=== PATIENT | male | born 1965 | race Caucasian/White ===

== ENCOUNTER 2019-07-11 19:26 | Outpatient (CLI) | payer OTHER | END 2019-07-11 19:27 | disposition home or self-care (01) | LOC: COV 19:26 | PROVIDERS: ATTEND Family Medicine | DX: R50.9 Fever, unspecified (principal); M79.10 Myalgia, unspecified site; R53.83 Other fatigue; J02.9 Acute pharyngitis, unspecified | CPT/HCPCS: 81599 ==

== ENCOUNTER 2023-09-04 08:43 | Outpatient (CLI) | payer OTHER ==
[2023-09-04 08:54] LABS: BASOPHILS # (AUTO) 0.1 10^3/uL (0.0-0.1); BASOPHILS % (AUTO) 1.3 %; EOSINOPHILS # (AUTO) 0.2 10^3/uL (0.0-0.7); EOSINOPHILS % (AUTO) 3.5 %; HCT - HEMATOCRIT 44.2 % (42.0-52.0); HGB - HEMOGLOBIN 14.3 g/dL (14.0-18.0); LYMPHOCYTES # (AUTO) 1.7 10^3/uL (1.5-3.5); LYMPHOCYTES % (AUTO) 31.4 %; MEAN CORPUSCULAR HEMOGLOBIN 29.1 pg (27.0-31.0); MEAN CORPUSCULAR HGB CONC 32.4 g/dL (32.0-36.0); MEAN CORPUSCULAR VOLUME 89.8 fL (80.0-94.0); MEAN PLATELET VOLUME 9.7 fL (7.4-11.4); MONOCYTES # (AUTO) 0.6 10^3/uL (0.0-1.0); MONOCYTES % (AUTO) 11.1 %; NEUTROPHILS # (AUTO) 2.8 10^3/uL (1.5-6.6); NEUTROPHILS % (AUTO) 52.5 %; PLT - PLATELET COUNT 238 10^3/uL (130-450); RED BLOOD COUNT 4.92 10^6/uL (4.70-6.10); RED CELL DISTRIBUTION WIDTH 13.1 % (12.0-15.0); WHITE BLOOD COUNT 5.4 x10^3/uL (4.8-10.8)
[2023-09-04 09:16] LABS: ALBUMIN 4.4 g/dL (3.2-5.5); ALBUMIN/GLOBULIN RATIO 1.8 (1.0-2.2); ALKALINE PHOSPHATASE 97 IU/L (42-121); ALT ALANINE AMINOTRANSFERASE 32 IU/L (10-60); AST ASPARTATE AMINOTRANSFERASE 33 IU/L (10-42); BILIRUBIN,TOTAL 0.5 mg/dL (0.2-1.0); BUN - BLOOD UREA NITROGEN 18 mg/dL (6-20); CALCIUM 9.3 mg/dL (8.5-10.3); CARBON DIOXIDE - CO2 29 mmol/L (21-32); CHLORIDE 103 mmol/L (101-111); CHOL/HDL RATIO 2.4 (<5.0); CHOLESTEROL 107 mg/dL; GFR - MDRD 77 (>89); GLUCOSE 126 mg/dL (74-104); HDL CHOLESTEROL 44 mg/dL; LDL CHOLESTEROL,CALCULATED 51 mg/dL; LDL/HDL RATIO 1.2 (<3.6); POTASSIUM 4.1 mmol/L (3.5-4.5); SODIUM 136 mmol/L (135-145); TOTAL PROTEIN 6.8 g/dL (6.4-8.9); TRIGLYCERIDES 62 mg/dL (48-352); VLDL CHOLESTEROL 12 mg/dL
== END 2023-09-04 08:44 | disposition home or self-care (01) ==
LOC: LAB 08:43
PROVIDERS: ATTEND Nurse Practitioner Family
DX: Z00.00 Encounter for general adult medical examination without abnormal findings (principal); E78.5 Hyperlipidemia, unspecified
CPT/HCPCS: 36415; 80053; 80061; 83721; 85025

== ENCOUNTER 2023-11-12 11:08 | Outpatient (CLI) | payer OTHER ==
--- NOTE | 2023-11-12 11:40 | Sleep Patient Instructions ---
Sleep Center Visit Summary - Patient Visit Information Reason for Visit: Initial consult for evaluation of sleep disordered breathing and other sleep issues. - Patient Instructions Instructions Attached: Sleep Study, Sleep Study Home Monitor Additional Instructions: You will be completing a sleep study, either an in-lab polysomnography (PSG) or home sleep study (HST). You will follow-up in the sleep care office after the sleep study is completed to hear the results and talk about therapy, if needed. You will be called by our office staff to schedule this appointment, but you may contact us with any questions. - Clinic Information Contact: [facility] [address] [place] [id number] [email or web address] T: [phone]
--- NOTE | 2023-11-12 11:45 | SLEEP CARE CONSULTATION ---
Information from patient questionnaire entered by Sujit Colbert. I have reviewed and concur with the information entered by Sujit Colbert. This document represents the service I personally performed and the decisions made by me, Hanna Craven ARNP. History of Present Illness Service Date and Time: 11/12/2023 1108 Reason for Visit: New patient Chief Complaint: reports: Snoring, Observed pauses in breathing Date of Onset: DECADES Usual bedtime: 2300 Time it takes to fall asleep: 2MINS Snores at night: Yes Observed to quit breathing while asleep: Yes Sleeps alone due to snoring: No Number of times waking at night: 0-1 Reasons for waking at night: reports: Bathroom, Other (UNKNWON HEAT). denies: Choking, Gasping for air Toss, Turn, or Twitch while sleeping: Yes Recalls having dreams: No (rarely remember dreams) Usually gets out of bed at: 0700 Feels refreshed in the morning: Yes Morning headache: No Sleepy or fatigued during the day: No Ever fallen asleep while driving: No Takes day naps: No Prior sleep studies: No Additional HPI information: I had the pleasure of seeing MICHELLE PONCE today regarding the possibility of him having a sleep disorder. His current complaints are snoring and observed pauses in breathing. He says he knows that he has been snoring for a long time. His has told him in the past that he might have pauses in breathing when sleeping. He says he wakes up feeling refreshed. He does not have urge to nap during the day. - Parasomnia Symptoms Ever been unable to move upon waking from sleep: No Walks in sleep: No Talks in sleep: No Ever acted out dreams in sleep: No Ever felt weak in the knees when startled or emotional: No Bothered by creepy, crawly, restless sensations in legs: Yes (very rarely, has more leg cramps than restlessness) Problems with memory or concentration: Yes (last 2 years, memory) Subjective Initial Ward Sleepiness Scale score: 4 (11/10/23) Past Medical History Past Medical History: reports: Diabetes (PRE DIABETES), Asthma, GERD Social History The patient's occupation is a [employer]. Patient is and lives in [place]. Have you smoked in the past 12 months: No Alcohol use: Yes Alcohol amount and frequency: 4 SHOTS A WEEK Caffeine use: Yes Caffeine amount and frequency: 5 SODAS DAILY Family History Family history of sleep disordered breathing: Yes Family Hx Sleep Apnea: Father: Snoring Allergies and Home Medications Known drug allergies: Yes ( LISTED) Drug allergies reviewed: Yes Home medication list reviewed: Yes (as listed) Allergy and home medication list: Allergies cefaclor [From Ceclor] Allergy (Verified 11/12/23 11:10) Sulfa (Sulfonamide Antibiotics) Allergy (Verified 11/12/23 11:10) Home Medications Medication Instructions Recorded Confirmed Last Taken Type Albuterol See Rx Instructions [facility] 11/12/23 11/12/23 Unknown History Atorvastatin [Lipitor] See Rx Instructions [facility] 11/12/23 11/12/23 Unknown History Bismuth Subsalicylate See Rx Instructions [facility] 11/12/23 11/12/23 Unknown History [Pepto-Bismol] Cetirizine [ZyrTEC] See Rx Instructions [facility] 11/12/23 11/12/23 Unknown History Fluticasone [Flonase] See Rx Instructions [facility] 11/12/23 11/12/23 Unknown History Fluticasone/Salmeterol 100/50 See Rx Instructions [facility] 11/12/23 11/12/23 Unknown History [Advair 100 Mcg/50 Mcg] Ibuprofen See Rx Instructions [facility] 11/12/23 11/12/23 Unknown History Lactobacillus Combination No.4 See Rx Instructions [facility] 11/12/23 11/12/23 Unknown History [Probiotic] Montelukast [Singulair] See Rx Instructions [facility] 11/12/23 11/12/23 Unknown History Olopatadine HCl See Rx Instructions [facility] 11/12/23 11/12/23 Unknown History Omeprazole See Rx Instructions [facility] 11/12/23 11/12/23 Unknown History diphenhydrAMINE [Benadryl] See Rx Instructions [facility] 11/12/23 11/12/23 Unknown History Review of Systems Weight loss over past 5 years: 10 Cardiovascular: reports: other (some high blood pressure readings at doctor's office) Respiratory: reports: shortness of breath Gastrointestinal: reports: diarrhea Neurological: reports: other (MIGRAINES). denies: headaches Psychiatric: denies: anxiety, depression Ear/Nose/Throat: reports: nasal congestion, hoarseness, wisdom teeth removed. denies: tonsillectomy Musculoskeletal: reports: back pain, muscle pain or cramping Immunologic: reports: sneezing, itching, allergies to food or environment Physical Exam Vital signs obtained and entered by: SUJIT Ahuja MA Blood Pressure: 162/94 (LEFT ARM-nervous today for appt) Cuff size: regular Heart Rate: 88 O2 Saturation: 97 Height: 6 ft Weight: 210 lb 9.6 oz Body Mass Index: 28.5 BMI Classification: Overweight Neck circumference: 16.25 Nostrils: patent to airflow Mouth and throat: narrow oropharynx Soft palate: long Hard palate: normal Uvula: normal Uvula visualization: 25% Mallampati Class III Tongue: normal in size Tonsils: small Neck: normal w/o lymphadenopathy or thyromegaly Heart: regular rate and rhythm Lungs: clear bilaterally Impression and Plan 1. Suspected Obstructive Sleep Apnea-Hypopnea Syndrome, as suggested by a history of loud and irregular snoring, observed cessation of breath while asleep and cognitive impairment. Narrow oropharynx and obesity are common predisposing factors for obstructive sleep apnea-hypopnea syndrome. I recommend proceeding to polysomnography to confirm the diagnosis and to assess severity. If the patient has significant sleep disordered breathing, a manual CPAP titration study will also be performed to find the optimal treatment pressure. I informed the patient of what the sleep studies involve and after some discussion, obtained agreement to proceed. The pathophysiology of obstructive sleep apnea- hypopnea syndrome was discussed with the patient and health risks of cardiovascular and cerebrovascular disease if not treated. Risks of drowsy driving discussed in detail and patient advised to avoid long distance driving and to harness puller at the first sign of drowsiness. Patient agreed to plan. * Schedule polysomnography +- manual CPAP titration study and return in 1-2 weeks after the study to discuss result and initiate therapy. * Avoid long distance driving or driving when feeling sleepy. * Avoid alcohol, sedative and muscle relaxant around bedtime. * Attempt to lose weight. * Review instructions provided by trained office staff on how to prepare for the sleep study. * Return for follow-up after sleep study completed. Counseling Topics: Weight loss health impact Plan: PSG and follow up Visit Type: In Office Time Spent with Patient (minutes): 30 Provider Statement: I spent 100% of the Face to Face Visit with the patient with greater than 50% spent counseling the patient and coordination of care.
[2023-11-12 11:46] VITALS: BP 162/94; O2SAT 97
== END 2023-11-12 11:09 | disposition home or self-care (01) ==
LOC: SC 11:08
PROVIDERS: ATTEND Nurse Practitioner Family
DX: R06.83 Snoring (principal); R06.81 Apnea, not elsewhere classified; R41.89 Other symptoms and signs involving cognitive functions and awareness; E66.3 Overweight; Z68.28 Body mass index [BMI] 28.0-28.9, adult
CPT/HCPCS: 99203; 99212

== ENCOUNTER 2023-11-18 09:31 | Outpatient (CLI) | payer OTHER | END 2023-11-18 09:32 | disposition home or self-care (01) | LOC: SC 09:31 | PROVIDERS: ATTEND Nurse Practitioner Family | DX: G47.33 Obstructive sleep apnea (adult) (pediatric) (principal); R09.02 Hypoxemia; E66.3 Overweight; Z68.28 Body mass index [BMI] 28.0-28.9, adult | CPT/HCPCS: 95806 ==

== ENCOUNTER 2023-12-08 11:26 | Outpatient (CLI) | payer OTHER ==
--- NOTE | 2023-12-08 12:08 | Sleep Patient Instructions ---
Sleep Center Visit Summary - Patient Visit Information Reason for Visit: Sleep study follow-up - Patient Instructions Instructions Attached: CPAP Additional Instructions: You are being started on CPAP therapy with pressure setting at 4-15 cmH2O. You will need to call the sleep care office to set up your follow up once you have your CPAP machine to check compliance and response to therapy at that time. You may call the office with any concerns about pressure feeling too low or too much for adjustment, if needed. You should contact DME supplier for any questions or concerns about mask or equipment. Please call office to schedule a follow up appointment in the sleep care office one month after obtaining new device. - Clinic Information Contact: [facility] [address] [place] [address] [email or web address] T: [phone]
--- NOTE | 2023-12-08 12:13 | SLEEP CARE CONSULTATION ---
Information from patient questionnaire entered by Eugenie Colbert. I have reviewed and concur with the information entered by Eugenie Colbert. This document represents the service I personally performed and the decisions made by me, Hanna Craven ARNP. History of Present Illness Service Date and Time: 12/08/2023 112 Initial Carson Sleepiness Scale score: 4 (11/10/23) Current Carson Sleepiness Scale score: 2 (12/08/23) Additional HPI information: MICHELLE PONCE returns for follow up and results of the recently performed home sleep study. The sleep study done on 11/18/23 showed moderate obstructive sleep apnea with an average AHI of 24.2 and jenny oxygen saturation of 84%. He did not sleep supine during the sleep study. I explained the pathophysiology behind obstructive sleep apnea. We then spent quite a bit of time discussing different treatment options. For mild obstructive sleep apnea, surgery and oral appliance are alternatives to nasal CPAP therapy but in moderate or severe cases, nasal CPAP is the most effective and reliable treatment. I reviewed the impact of weight changes on sleep apnea and strongly recommended losing weight. After some discussion, the patient opted to go with the nasal CPAP therapy. Nasal autoCPAP set at 4-15 cmH20 will be ordered with rationale explained. A manual titration study will be ordered if unable to find optimal pressure with office adjustments. I explained how CPAP machine works and what to expect when using the machine. Using CPAP every night in order to get used to it was emphasized. Patient advised to put CPAP mask on before getting into bed so as not to fall asleep without CPAP. To assist acclimation to CPAP use, it could also be used for a short time during day while reading or watching TV. The patient was instructed to call the CPAP supplier to discuss any mechanical problem that may occur. If the mask given is uncomfortable or is difficult to keep on through the night even with adjustment, contact the CPAP supplier as many will replace with another mask style if notified before 30 days. If snoring or perceives is not getting enough air or too much air from the machine, notify this office. Patient counseled not drink alcohol less than 4 hours befo re bedtime as it can increase snoring and apnea. Patient was cautioned about risks of drowsy driving until sleepiness symptoms resolve. Patient denies drowsy driving. Sleep Study - Results Type of Sleep Study: Home sleep study (COMPLETED 11/18/23) Prior sleep studies: No Polysomnography/Home Sleep Study results: Physician Impression: The quality of the study is good. The length of the study is adequate (> 240 minutes). Please also see the tabulated and graphic data. 1. Obstructive Sleep Apnea-Hypopnea (ICD-10 G47.33), moderate, with an AHI of 24.2/hr and jenny SaO2 of 84%. During the study, the patient had 113 apneas (112 obstructive, 0 central, 1 mixed) and 60 hypopneas. The longest episode lasted 90.0 seconds. The patient did not sleep supine during this study (supine AHI was 0.0 and non-supine, 24.25). 2. Hypoxemia (ICD-10 R09.02), mild, with the lowest oxygen saturation of 84 % and 28.6 minutes with SaO2 under 90%. Baseline oxygen saturation was normal (Average oxygen saturation was 92%). Allergies and Home Medications Known drug allergies: Yes (as listed) Drug allergies reviewed: Yes Home medication list reviewed: Yes (no changes) Allergy and home medication list: Allergies cefaclor [From Ceclor] Allergy (Verified 12/08/23 11:28) Sulfa (Sulfonamide Antibiotics) Allergy (Verified 12/08/23 11:28) Review of Systems Review of systems same as previous: Yes (NO CHANGE) Physical Exam Vital signs obtained and entered by: EUGENIE Ahuja MA Blood Pressure: 151/95 (RIGHT ARM) Cuff size: regular Heart Rate: 98 O2 Saturation: 100 Height: 6 ft Weight: 212 lb Body Mass Index: 28.7 BMI Classification: Overweight Impression and Plan 1. Obstructive Sleep Apnea-Hypopnea Syndrome, moderate, with lowest oxygen saturation of 84%. Obviously this is the cause of the patients symptoms of unrefreshed sleep. Positive pressure therapy could benefit pre-diabetes, gastric reflux and asthma. As mentioned above, the patient will be started on nasal autoCPAP therapy with pressure set at 4-15 cmH2O. A manual titration study will be completed if unable to find optimal treatment pressure with office adjustments. Compliance guidelines also reviewed. A copy of compliance guidelines will be given for reference at check out. 2. Hypoxemia, mild, with a jenny oxygen saturation of 84% and 28.6 minutes spent under 90%. The baseline oxygen saturation was normal with an average oxygen saturation of 92%. 3. Overweight, unspecified. Currently patients BMI is 28.7. Obesity increases the risk of apnea, CPAP pressure requirements and overall health risks especially cardiovascular and diabetes. Thus patient is advised to lose weight. * Nasal auto CPAP therapy, pressure at 4-15 cmH2O. * Attempt to lose weight. * Avoid alcohol consumption near bedtime. * Avoid supine sleep until using CPAP. * The patient is again cautioned about driving until sleepiness completely resolves. * Return one month after CPAP obtained. I will assess response to therapy and compliance at that time. Counseling Topics: Weight loss health impact Prescriptions: Auto CPAP Follow up with Sleep Care in: other (compliance follow up) Visit Type: In Office Time Spent with Patient (minutes): 27 Provider Statement: I spent 100% of the Face to Face Visit with the patient with greater than 50% spent counseling the patient and coordination of care.
[2023-12-08 12:18] VITALS: BP 151/95; O2SAT 100
== END 2023-12-08 11:27 | disposition home or self-care (01) ==
LOC: SC 11:26
PROVIDERS: ATTEND Nurse Practitioner Family
DX: G47.33 Obstructive sleep apnea (adult) (pediatric) (principal); R09.02 Hypoxemia; E66.3 Overweight; Z68.28 Body mass index [BMI] 28.0-28.9, adult
CPT/HCPCS: 99212; 99213